=== PATIENT | male | born 1950 | race Two or more races ===

== ENCOUNTER 2017-07-06 07:02 | Inpatient (IN) | payer MEDICARE ==
[~2017-07-06] VITALS: Ht 180.3 cm; Wt 82.6 kg
[2017-07-06] MEDS ORDERED: CELECOXIB 100 MG CAPSULE ONE (07:20)
[2017-07-06] MEDS ORDERED: CEFAZOLIN SODIUM/DEXTROSE,ISO 50 ML IV ONE (07:20)
[2017-07-06] MEDS ORDERED: ACETAMINOPHEN 325 MG TABLET ONE (07:21)
[2017-07-06] MEDS ORDERED: oxyCODONE HCL SR 10MG TAB.SR.12H PO ONE (07:22)
[2017-07-06] MEDS ORDERED: BUPIVACAINE 0.25% 75 MG/30 ML VIAL ONE (07:44)
[2017-07-06] MEDS ORDERED: BACITRACIN 50000 UNITS/VIAL ONE (07:44)
[2017-07-06] MEDS ORDERED: KETOROLAC TROMETHAMINE INJ 30 MG/ML VIAL ONE (07:44)
[2017-07-06] MEDS ORDERED: ANESTHESIA TRAY IN PYXIS 1 EA TRAY MC ONE (07:44)
[2017-07-06 08:00] VITALS: BP 138/85
[2017-07-06] MEDS ORDERED: MORPHINE SULFATE/PF 10 MG/10ML (1MG/ML) AMPUL ONE (09:26)
[2017-07-06] MEDS ORDERED: MIDAZOLAM 50 MG/10 ML VIAL ONE (09:27)
[2017-07-06] MEDS ORDERED: TRANEXAMIC ACID 3,000 MG in SODIUM CHLORIDE IRRIG SOLUTION 70 ML IR ONE (09:30)
[2017-07-06] MEDS ORDERED: DORZ10DR13 EACHEYE (10:28)
[2017-07-06] MEDS ORDERED: LEVO150T8 PO (10:28)
[2017-07-06] MEDS ORDERED: TRIA1TAB3 PO (10:28)
[2017-07-06] MEDS ORDERED: AMLO5TAB7 PO (10:28)
--- NOTE | 2017-07-06 12:25 | NUR ---
tele manager gyn: notes received pt from recovery room with dx: s/p right knee arthroplasty. dressing intact. at bedside. vss. c/o 4/10 right knee pain at this time. pt is not on the system yet, admitting notified and made aware. oriented to room and surroundings. will continue to monitor.
[2017-07-06] MEDS ORDERED: ACETAMINOPHEN 325 MG TABLET PO PRN (12:30)
[2017-07-06] MEDS ORDERED: BISACODYL SUPP (10 MG) 10 MG/SUPP.RECT SUPP.RECT RC PRN (12:30)
[2017-07-06] MEDS ORDERED: ONDANSETRON HCL/PF 4 MG/2 ML VIAL IVP PRN ×2 (12:30→13:30)
[2017-07-06] MEDS ORDERED: SENNOSIDES 8.6 MG TABLET PO PRN (12:30)
[2017-07-06] MEDS ORDERED: DOCUSATE SODIUM 250 MG CAPSULE PO PRN (12:30)
[2017-07-06 12:45] VITALS: BP 137/67
--- NOTE | 2017-07-06 12:45 | NUR ---
tele analytics director: md visit tele provided, sr=70's. margarito (acnp) at bedside and answered all 's questions and concerns. pt resting quietly in bed with no distress noted. vss. will continue to monitor.
[2017-07-06] MEDS: HYDROCODONE/APAP 5/325MG 1 EACH TABLET PO PRN ×2 (12:56→15:59)
--- NOTE | 2017-07-06 12:56 | NUR ---
m/s assembly machine offbearer: notes c/o 10/06 right knee pain, medicated with norco 2 tabs po as ordered. remains at bedside. will continue to monitor.
[2017-07-06] MEDS: IV D5/0.45 NACL 1,000 ML IV PRN (12:57)
[2017-07-06 13:15] VITALS: BP 154/77
[2017-07-06] MEDS ORDERED: FENTANYL PF 100MCG/2ML AMPUL IV PRN ×2 (13:30→17:13)
[2017-07-06] MEDS ORDERED: MAGNESIUM HYDROXIDE 30 ML UDC PO PRN (13:30)
[2017-07-06] MEDS ORDERED: MENTHOL/CETYLPYRD (CEPACOL) 1 LOZ LOZENGE MM PRN (13:30)
[2017-07-06] MEDS ORDERED: MAG HYDROX/AL HYDROX/SIMETH 30 ML UDC PO PRN (13:30)
[2017-07-06] MEDS ORDERED: diphenhydrAMINE HCL 25 MG CAPSULE PO PRN (13:30)
[2017-07-06] MEDS ORDERED: CLONIDINE HCL 0.1 MG TABLET PO PRN (13:30)
[2017-07-06] MEDS ORDERED: NALOXONE HCL 0.4 MG/ML AMPUL IV PRN (13:30)
--- NOTE | 2017-07-06 13:30 | NUR ---
tele coffee farmer: notes r.t. at bedside and provided continuous pulse ox. questioned why he needs it if he is satting at 99%-100%. educated and pt due to spinal anesthesia, and answered sarcastically, "yes, i know spinal anesthesia is." instructed to call for assistance. no s/s of resp. distress noted. will continue to monitor.
[2017-07-06 13:55] VITALS: BP 143/50
[2017-07-06] MEDS: DRONABINOL (2.5 MG) 2.5 MG CAPSULE PO SCH ×2 (13:57→21:46)
[2017-07-06] MEDS: oxyCODONE IR immediate release 5 MG PO PRN ×3 (13:57→20:29)
--- NOTE | 2017-07-06 13:57 | NUR ---
tele semiconductor wafers saw operator: notes pt appears dozing off, then suddenly awaken when rounds made, pain reassessed and stated, "i have pain still, i want the 15mg of oxy ir." oxy ir 15mg po given as ordered. instructed to call for assistance. remains at bedside.
[2017-07-06] MEDS ORDERED: BUPIVACAINE 0.75% DEXT-PF 2 ML AMPUL IJ ONE (14:08)
--- NOTE | 2017-07-06 14:30 | NUR ---
tele order packer or packager: notes arielle (pharmacist) called and ask me to verify spinal order with dr. sarah orders. dr. sarah notified re: spinal post op orders with order to disregard spinal post op orders. pharmacist notified and made aware.
[2017-07-06 14:55] VITALS: BP 121/75
--- NOTE | 2017-07-06 15:59 | NUR ---
m/s hosting engineer: notes c/o 10/06 right knee pain, medicated with norco 2 tabs po as ordered. remains at bedside. will continue to monitor.
[2017-07-06] MEDS: DOCUSATE SODIUM 100 MG CAPSULE PO SCH (16:05)
[2017-07-06] MEDS: ASPIRIN 325 MG TABLET PO SCH (16:05)
--- NOTE | 2017-07-06 16:59 | NUR ---
m/s quality assurance: notes reassessed pain and pt appears comfortable, but insisted he gets the pain and pt immediately agreed to get his oxy ir 15mg. oxy 15mg po given as ordered for pain level of 8/10 as stated. instructed to call for assistance.
[2017-07-06] MEDS: CEFAZOLIN SODIUM 1 GM in IV SODIUM CHLORIDE 0.9% 50 ML IV SCH (17:41)
--- NOTE | 2017-07-06 17:59 | NUR ---
m/s body line finisher: notes pt resting quietly in bed with no distress noted. remains at bedside. will continue to monitor.
--- NOTE | 2017-07-06 19:00 | NUR ---
tele automation controls engineer: notes in bed resting comfortable, remains at bedside. report given to natalee (rn) for continuity of care.
--- NOTE | 2017-07-06 19:25 | NUR ---
TELE/RN NOTES RECEIVED PT. LYING IN BED. PT. IS AWAKE, ALERT AND ORIENTED X4. BREATHING EVEN AND UNLABORED ON 2LPM O2 VIA NC. NO SOB, RESPIRATORY DISTRESS OR COMPLAINTS OF PAIN NOTED AT THIS TIME. PT. RESPIRATORY RATE IS 18 BREATHS/MIN AND O2 SAT 98%. PT. WITH EXTERNAL DIRECTOR OF QUANTITATIVE RESEARCH PRESENT AND INTACT. CURRENT RHYTHM = SINUS RHYTHM HR 72. PT. WITH PERIPHERAL IV PRESENT, PATENT AND INTACT ADMINISTERING TO PT. D5 1/2 NS @ 125 ML/HR. PT. IS S/P RIGHT KNEE ARTHROPLASTY WITH DR. GAMEZ. RIGHT KNEE DRESSING IS PRESENT, CLEAN, DRY AND INTACT. PT. WITH PADILLA CATHETER PRESENT, PATENT AND INTACT DRAINING CLEAR YELLOW URINE. BED LOCKED AND IN LOWEST POSITION, SIDE RAILS UP X2, BED ALARM ON, CALL LIGHT WITHIN REACH, WILL CONTINUE TO MONITOR.
[2017-07-06] MEDS: AMLODIPINE BESYLATE 5 MG TABLET PO SCH (19:30)
[2017-07-06] MEDS ORDERED: LEVOTHYROXINE SODIUM 150 MCG TABLET PO SCH (19:30)
[2017-07-06 20:00] VITALS: BP 138/85
[2017-07-06] MEDS ORDERED: PANTOPRAZOLE 40 MG TABLET.DR PO SCH (22:00)
[2017-07-06] MEDS ORDERED: ZOLPIDEM TARTRATE 5 MG TABLET PO PRN (22:00)
--- NOTE | 2017-07-06 23:00 | NUR ---
TELE/RN NOTES PT. HAS RIGHT LEG IN CPM MACHINE. EDUCATED PT. THAT CPM IS TO BE USED FOR A FEW HOURS AT A TIME AND THEN REMOVED TO PREVENT LEG FROM CRAMPING AND GETTING STIFF. PT. VERBALIZED UNDERSTANDING AND STATES "I WANT TO KEEP IT ON AND MOVING, IM NOT HAVING ANY PAIN". PT. CONTINUES TO REFUSE TURNING OFF AND REMOVING CPM MACHINE. WILL ATTEMPT AGAIN AT A LATER TIME. WILL CONTINUE TO MONITOR.
[2017-07-07] VITALS: BP 141/83
[2017-07-07 00:38] VITALS: BP 141/83
[2017-07-07] MEDS: CEFAZOLIN SODIUM 1 GM in IV SODIUM CHLORIDE 0.9% 50 ML IV SCH (02:47)
[2017-07-07] MEDS: IV D5/0.45 NACL 1,000 ML IV PRN ×2 (02:47→13:37)
[2017-07-07 04:00] VITALS: BP 126/74
[2017-07-07 04:59] VITALS: BP 126/74
[2017-07-07] MEDS: DRONABINOL (2.5 MG) 2.5 MG CAPSULE PO SCH ×2 (06:28→12:38)
--- NOTE | 2017-07-07 06:45 | NUR ---
TELE/RN NOTES RECEIVED PT. LYING IN BED, AWAKE, ALERT AND ORIENTED X4. BREATHING EVEN AND UNLABORED ON 2LPM O2 VIA NC. NO SOB, RESPIRATORY DISTRESS OR COMPLAINTS OF PAIN NOTED AT THIS TIME. PT. WITH EXTERNAL DIRECTOR HUMAN SERVICES PRESENT AND INTACT. CURRENT RHYTHM = SINUS RHYTHM HR 63. PT. WITH PERIPHERAL IV PRESENT, PATENT AND INTACT ADMINISTERING TO PT. D5 1/2 NS @ 125 ML/HR. PT. WITH PADILLA CATHETER PRESENT, PATENT AND INTACT DRAINING CLEAR YELLOW URINE. ALL PT. NEEDS MET. PT. CONTINUES TO HAVE RIGHT LEG IN CPM MACHINE. EDUCATED PT. SEVERAL TIMES ABOUT CPM TO BE USED FOR A FEW HOURS AT A TIME AND THEN REMOVED TO PREVENT LEG FROM CRAMPING AND GETTING STIFF. PT. VERBALIZED UNDERSTANDING AND REFUSED TO REMOVE CPM MACHINE. BED LOCKED AND IN LOWEST POSITION, SIDE RAILS UP X2, BED ALARM ON, CALL LIGHT WITHIN REACH, WILL ENDORSE TO DAYSHIFT NURSE FOR CONTINUITY OF CARE.
[2017-07-07 07:28] LABS: BASOPHILS % (AUTO) 0.3 % (0.0-2.0); EOSINOPHILS % (AUTO) 0.1 % (0.0-6.0); HEMATOCRIT 37 % (39-51); HEMOGLOBIN 12.9 g/dL (13.5-17.5); LYMPHOCYTES # (AUTO) 1.3 /CMM (0.8-4.8); LYMPHOCYTES % (AUTO) 10.8 % (20.0-44.0); MEAN CORPUSCULAR HGB CONC 35 g/dl (31.0-36.0); MEAN CORPUSCULAR VOLUME 91 fL (80-96); MONOCYTES # (AUTO) 1.6 /CMM (0.1-1.30); MONOCYTES % (AUTO) 13.5 % (2.0-12.0); NEUTROPHILS % (AUTO) 75.3 % (43.0-81.0); PLATELET COUNT (AUTO) 247 /CMM (150-450); RDW COEFFICIENT OF VARIATION 12.9 (11.5-15.0); WHITE BLOOD COUNT (AUTO) 11.9 K/uL (4.3-11.0)
[2017-07-07] MEDS ORDERED: LEVOTHYROXINE SODIUM 75 MCG TABLET PO SCH (07:30)
[2017-07-07 07:38] LABS: CALCIUM, SERUM 7.9 mg/dL (8.5-10.1); CREATININE 1.1 mg/dL (0.6-1.3); MAGNESIUM 1.7 mg/dL (1.8-2.4); PHOSPHORUS 3.2 mg/dL (2.5-4.9); POTASSIUM 3.4 mmol/L (3.5-5.1)
--- NOTE | 2017-07-07 07:45 | NUR ---
OPENING BLEACH PACKER NOTES RECEIVED PATIENT IN BED. SLEEPING BUT EASILY AROUSABLE, RESPIRATIONS EVEN AND UNLABORED,NOTED RESPIRATIONS AT 16/MIN, RESTING, 02 SAT AT 98% ON 2LITERS 02 VIA N/C, HR 61, ON TELE ZIG ZAG STITCHER SINUS RHYTHM, RIGHT FA IV SITE INTACT AND PATENT, NO REDNESS , NO INFILTRATION NOTED, IVF RUNNING ORDERED, CPM MACHINE INTACT, WILL CONTINUE TO PROVIDE EDUCATION REGARDING CPM, SAFETY MEASURES IN PLACE, CALL LIGHT KEPT WITHIN REACH.
[2017-07-07 08:00] VITALS: BP 125/76
[2017-07-07] MEDS: ASPIRIN 325 MG TABLET PO SCH ×2 (08:30→17:29)
[2017-07-07] MEDS: AMLODIPINE BESYLATE 5 MG TABLET PO SCH (08:31)
[2017-07-07] MEDS: DOCUSATE SODIUM 100 MG CAPSULE PO SCH ×2 (08:31→17:29)
[2017-07-07] MEDS: DORZOLAMIDE OPTH 2% 10 ML BOTTLE EACHEYE SCH ×3 (08:33→08:44)
--- NOTE | 2017-07-07 08:45 | NUR ---
INFRASTRUCTURE ARCHITECT NOTES SP02 97% ON 2 LITERS 02, HR 71, RESPIRATIONS 16 , NO DISTRESS
[2017-07-07] MEDS ORDERED: TAMSULOSIN 0.4 MG CAP.SR.24H PO SCH (09:00)
[2017-07-07] MEDS ORDERED: TIMOLOL 0.5% SOLN OPHTH 5 ML BOTTLE EACHEYE SCH (09:00)
[2017-07-07] MEDS ORDERED: TRIAMTERENE/HYDROCHLOROTHIAZID (37.5/25MG) 1 UDCAP PO SCH (09:00)
--- NOTE | 2017-07-07 09:45 | NUR ---
RN MS NOTES SP02 98% ON 2 LITERS 02, HR 66, RESPIRATIONS 16. NO RESPIRATORY DISTRESS NOTED.
[2017-07-07] MEDS: Magnesium 1GM/D5W 100ML PREMIX 100 ML IV SCH ×2 (10:00→11:00)
[2017-07-07] MEDS ORDERED: POTASSIUM CHLORIDE 20 MEQ TAB.PRT.SR PO SCH (10:00)
--- NOTE | 2017-07-07 10:00 | NUR ---
TEACHER KINDERGARTEN NOTES MADE PATIENT AWARE OF NEW ORDER PER MD FOR POTASSIUM AND MAGNESIUM REPLACEMENT PATIENT REFUSED , EXPLAINED BENEFIT REFUSED, AT BEDSIDE ALSO REFUSED. MD MADE AWARE WITH NEW ORDERS.
--- NOTE | 2017-07-07 10:45 | NUR ---
RN MS NOTES SP02 98% ON 2 LITERS 02, HR 68, RESPIRATIONS 18. NO RESPIRATORY DISTRESS NOTED.
[2017-07-07] MEDS ORDERED: MAGNESIUM OXIDE 400 MG TABLET PO ONE (12:00)
--- NOTE | 2017-07-07 12:00 | NUR ---
TRAINING CONSULTANT NOTES MADE PATIENT AWARE OF NEW ORDER FOR PO MEDICATION FOR MAGNESIUM, AND POTASSIUM EXPLAINED BENEFIT, PATIENT STILL REFUSED, AT BEDSIDE REFUSED, MD MADE AWARE, NOT ADMINISTERED.
[2017-07-07] MEDS: oxyCODONE IR immediate release 5 MG PO PRN ×3 (12:40→19:03)
--- NOTE | 2017-07-07 12:45 | NUR ---
CULINARY ASSISTANT NOTES REMOVED PADILLA ORDERED, TOLERATED WELL 1300 IN BAG URINE YELLOW, CLEAR WILL CONTINUE TO MONITOR URINE OUTPUT URINAL GIVEN , EDUCATION PROVIDED.
--- NOTE | 2017-07-07 12:46 | NUR ---
RN NOTES, RESPIRATIONS EVEN AND UNLABORED, NO DISTRESS NOTED, RESPIRATIONS AT 18, SPO2 AT 97%,HEART RATE 72. REMAINS COMFORTABLE. WILL CONTINUE TO MONITOR
--- NOTE | 2017-07-07 13:45 | NUR ---
RN NOTES RESPIRATIONS EVEN AND UNLABORED, HEART RATE 70,96% SPO2 ON 2 LITERS O2, RESPIRATIONS 16, WILL CONTINUE TO MONITOR.
--- NOTE | 2017-07-07 13:56 | NUR ---
INDUSTRIAL MAINTENANCE TECH NOTES URINAL AT BEDSIDE , PATIENT ABLE TO VOID WITH OUT ANY DIFFICULTIES NO COMPLAIN OF DISCOMFORT, VOIDED 300CC IN URINAL CLEAR YELLOW.
--- NOTE | 2017-07-07 15:15 | NUR ---
RN NOTES, DRESSING TO RIGHT LEG WAS CHANGED BY MD ORDERED.
--- NOTE | 2017-07-07 15:42 | NUR ---
RN NOTES RESPIRATIONS 16,96% RA, HEART RATE 70, NO RESPIRATORY DISTRESS PRESENT, REMAINS COMFORTABLE AT THIS TIME.
[2017-07-07] MEDS ORDERED: CLON0.1T14 PO (15:49)
[2017-07-07] MEDS ORDERED: OXYC5CAP18 PO (15:49)
[2017-07-07] MEDS ORDERED: ASPI-992 PO (15:49)
[2017-07-07] MEDS ORDERED: HYDR-552 PO (15:50)
[2017-07-07 16:00] VITALS: BP 141/83
[2017-07-07] MEDS ORDERED: TIMOLOL 0.5% SOLN OPHTH 5 ML BOTTLE RIGHTEYE SCH (17:00)
--- NOTE | 2017-07-07 19:04 | NUR ---
RN MS NOTES PHARMACY MADE AWARE OF TIMOLOL MEDICATION NOT SCANNING AND NEW ORDER, ADMINISTERED AVAILABLE.
--- NOTE | 2017-07-07 19:28 | NUR ---
RN NOTES RECEIVE PT IN BED A/O X3 , NO S/S OF DISTRESS, STABLE, SAFETY MEASURES IN PLACE, CALL LIGHT WITHIN REACH, WILL CONTINUE TO MONITOR AWAITING AMBULANCE AT 1930
--- NOTE | 2017-07-07 19:40 | NUR ---
CLOSING RN NOTES PATIENT IN BED. SLEEPING BUT EASILY AROUSABLE, RESPIRATIONS EVEN AND UNLABORED,RIGHT FA IV SITE REMOVED NO REDNESS , NO INFILTRATION NOTED, DISCHARGE INSTRUCTIONS PROVIDED AND REPORT GIVEN TO REIN, AND ONCOMING RN FOR CONTINUITY OF CARE, SAFETY MEASURES IN PLACE, CALL LIGHT KEPT WITHIN REACH.
--- NOTE | 2017-07-07 20:52 | NUR ---
PATIENT DISCHARGE PATIENT LEFT AT 2120 VIA 2 EMT AMBULANZ PATIENT ON STABLE CONDITION NO S/S OF DISTRESS NOTED, NO CHEST PAIN NO COMPLAINS OF PAIN, VS STABLE, TOLERATING ROOM AIR 99%, HEALTH EDUCATION AND EXIT CARE WAS PROVIDED, EDUCATION ABOUT DISEASE AND RISKS AND BENEFITS FOLLOW UP CARE PROVIDED, VERBALIZED UNDERSTANDING. DOCUMENTS WAS PROVIDED. CONTINUE MEDICATION PRESCRIPTION WAS PROVIDED. AT BEDSIDE, IV SITE WAS REMOVED BY DAY SHIFT RN NURSE. ALL BELONGINGS WAS TAKEN, PATIENT APPRECIATIVE TO NURSES AND THANKFUL.
== END 2017-07-07 20:20 | DRG 470 ==
LOC: DS 07:02 → MED 12:31
PROVIDERS: ADMIT Specialist; ATTEND Specialist
PROC: 0SRC0J9 Replacement of Right Knee Joint with Synthetic Substitute, Cemented, Open Approach (ICD-10-PCS; principal; 2017-07-06 09:30)
DX: M17.11 Unilateral primary osteoarthritis, right knee (principal); E06.3 Autoimmune thyroiditis; N40.0 Benign prostatic hyperplasia without lower urinary tract symptoms; I10 Essential (primary) hypertension; G89.29 Other chronic pain; M54.9 Dorsalgia, unspecified; E78.00 Pure hypercholesterolemia, unspecified; F12.90 Cannabis use, unspecified, uncomplicated; K59.00 Constipation, unspecified
CPT/HCPCS: 36415; 80048-TC; 83735-TC; 84100-TC; 85025-TC; 86850-TC; 86921-TC; 87081-TC; 88305-TC; 88311-TC; 97110-TC; 97116-TC; 97530-TC; 97760-TC; A4216; A4217; A6402; C1713; J0690; J1100; J1885; J2250; J2274; J2405; J2704; J3490; L1830; Q0167; Z7610